=== PATIENT | male | born 1995 | race Caucasian/White ===

== ENCOUNTER 2016-09-21 20:24 | Emergency (ER) | payer SELFPAY ==
[~2016-09-21] VITALS: Ht 180.3 cm; Wt 77.1 kg
--- NOTE | 2016-09-21 20:50 | ED Abdominal Pain ---
General Chief Complaint: Abdominal/GI Problems Stated Complaint: RT SIDED PELVIC PAIN Nursing Triage Note: pt ambulated to room. pt complains of lower right pelvic pain for last 3 days. no other issues or symptoms noted at this time. Sepsis Screen: No Definite Risk Source of Information: Patient Exam Limitations: No Limitations History of Present Illness Time Seen By Provider: 20:44 Initial Comments Patient presents to ER by private conveyance with chief complaint of 3 days progressively and intermittently worsening pain in the right lower abdomen/ pelvis inguinal region. He remarks that when he was much much younger he had a right inguinal hernia repair. He does not recall doing anything that would've injured that hernia. He has no fevers chills nausea vomiting or diarrhea. He had a bowel movement yesterday was formed regular. He is concerned because his family member has recently been diagnosed with pancreatitis secondary to a large gallstone. He has not had any other surgeries on his belly and has his own appendix and gallbladder intact. He has no other medical problems and is not on any medicines. Allergies and Home Medications Allergies Coded Allergies: No Known Drug Allergies (Unverified , 09/21/16) Review of Systems Constitutional: No chills, No diaphoresis, No fever, No malaise Respiratory: Denies Cough Cardiovascular: Denies Chest Pain, Denies Palpitations, Denies Syncope Gastrointestinal: See HPI, Abdominal Pain, Denies Blood Streaked Stools, Denies Constipated, Denies Diarrhea, Denies Nausea, Denies Poor Appetite, Denies Vomiting Genitourinary: Denies Burning, Denies Discharge Musculoskeletal: No back pain, No joint pain Skin: No pruritus, No rash Psychiatric/Neurological: Denies Numbness, Denies Paresthesia Past Pfbdncd-Dhvqqw-Xrdgfo Hx Patient Social History Recent Foreign Travel: No Contact w/Someone Who Travel: No Recent Infectious Disease Expo: No Physical Exam Vital Signs VS - Last 72 Hours, by Label 09/21/16 20:41 Temp 97.2 Pulse 103 Resp 16 B/P (MAP) 144/96 Pulse Ox 99 O2 Delivery Room Air Capillary Refill : Less Than 3 Seconds General Appearance: WD/WN, moderate distress HEENT: PERRL/EOMI, pharynx normal Respiratory: chest non-tender, lungs clear Cardiovascular: normal peripheral pulses, regular rate, rhythm, no edema Peripheral Pulses: 3+ Dorsalis Pedis (R), 3+ Left Dors-Pedis (L) Gastrointestinal: normal bowel sounds, soft, tenderness (right lower quadrant) Genital/Rectal: normal genital exam, tenderness (right inguinal exam with bulging abdominal contents palpable in the right inguinal tract but no evidence of incarceration. Very tender.) Extremities: normal inspection, no pedal edema Back: normal inspection, no CVA tenderness Male: normal genitalia, inguinal tenderness (right), No testicular tenderness Neurologic/Psychiatric: alert, oriented x 3 Skin: normal color, warm/dry Focused Exam Lactic Acid Level Laboratory Tests Test 09/21/16 21:09 Lactic Acid Level 2.52 MMOL/L (0.50-2.00) *H Progress/Results/Core Measures Results/Orders Lab Results Laboratory Tests Test 09/21/16 20:56 09/21/16 21:09 09/21/16 21:40 Range/Units White Blood Count 7.3 4.3-11.0 10^3/uL Red Blood Count 5.76 4.35-5.85 10^6/uL Hemoglobin 17.3 13.3-17.7 G/DL Hematocrit 49 40-54 % Mean Corpuscular Volume 85 80-99 FL Mean Corpuscular Hemoglobin 30 25-34 PG Mean Corpuscular Hemoglobin Concent 35 32-36 G/DL Red Cell Distribution Width 12.6 10.0-14.5 % Platelet Count 260 130-400 10^3/uL Mean Platelet Volume 11.2 H 7.4-10.4 FL Neutrophils (%) (Auto) 60 42-75 % Lymphocytes (%) (Auto) 30 12-44 % Monocytes (%) (Auto) 6 0-12 % Eosinophils (%) (Auto) 3 0-10 % Basophils (%) (Auto) 0 0-10 % Neutrophils # (Auto) 4.4 1.8-7.8 X 10^3 Lymphocytes # (Auto) 2.2 1.0-4.0 X 10^3 Monocytes # (Auto) 0.5 0.0-1.0 X 10^3 Eosinophils # (Auto) 0.2 0.0-0.3 10^3/uL Basophils # (Auto) 0.0 0.0-0.1 10^3/uL Urine Color YELLOW Urine Clarity CLEAR Urine pH 7 5-9 Urine Specific [place] 1.010 L 1.016-1.022 Urine Protein NEGATIVE NEGATIVE Urine Glucose (UA) 4+ H NEGATIVE Urine Ketones NEGATIVE NEGATIVE Urine Nitrite NEGATIVE NEGATIVE Urine Bilirubin NEGATIVE NEGATIVE Urine Urobilinogen NORMAL NORMAL MG/DL Urine Leukocyte Esterase 1+ H NEGATIVE Urine RBC (Auto) NEGATIVE NEGATIVE Urine RBC NONE /HPF Urine WBC 2-5 /HPF Urine Squamous Epithelial Cells 2-5 /HPF Urine Crystals NONE /LPF Urine Bacteria NEGATIVE /HPF Urine Casts NONE /LPF Urine Mucus NEGATIVE /LPF Urine Other LG SPERM H /HPF Urine Culture Indicated NO Sodium Level 135 135-145 MMOL/L Potassium Level 3.5 L 3.6-5.0 MMOL/L Chloride Level 99 98-107 MMOL/L Carbon Dioxide Level 23 21-32 MMOL/L Anion Gap 13 5-14 MMOL/L Blood Urea Nitrogen 11 7-18 MG/DL Creatinine 1.00 0.60-1.30 MG/DL Estimat Glomerular Filtration Rate > 60 BUN/Creatinine Ratio 11 Glucose Level 445 *H 70-105 MG/DL Calcium Level 9.8 8.5-10.1 MG/DL Total Bilirubin 1.5 H 0.1-1.0 MG/DL Aspartate Amino Transf (AST/SGOT) 12 5-34 U/L Alanine Aminotransferase (ALT/SGPT) 20 0-55 U/L Alkaline Phosphatase 106 40-136 U/L Total Protein 7.7 6.4-8.2 GM/DL Albumin 4.5 3.2-4.5 GM/DL Lipase 20 8-78 U/L Lactic Acid Level 2.52 *H 0.50-2.00 MMOL/L Glucometer 371 H 70-110 MG/DL My Orders Orders - JADA YEUNG Ct Abd/Pelv W (Appendicitis) (09/21/16 20:56) Cbc With Automated Diff (09/21/16 20:56) Comprehensive Metabolic Panel (09/21/16 20:56) Lactic Acid Analyzer (09/21/16 20:56) Lipase (09/21/16 20:56) Ua Culture If Indicated (09/21/16 20:56) Fentanyl Injection (Sublimaze Injection (09/21/16 20:56) Saline Lock/Iv-Start (09/21/16 20:56) Ns Iv 1000 Ml (Sodium Chloride 0.9%) (09/21/16 20:56) Ondansetron Injection (Zofran Injectio (09/21/16 21:00) Iohexol Injection (Omnipaque 350 Mg/Ml 1 (09/21/16 21:15) Ns (Ivpb) (Sodium Chloride 0.9% Ivpb Bag (09/21/16 21:15) Fentanyl Injection (Sublimaze Injection (09/21/16 21:30) Ns Iv 500 Ml (Sodium Chloride 0.9%) (09/21/16 21:44) Potassium Cl 10meq/50ml Ivpb (Kcl 10 Meq (09/21/16 21:45) Accucheck Stat ONCE (09/21/16 21:44) Ketorolac Injection (Toradol Injection) (09/21/16 22:15) Medications Given in ED Current Medications Medications Dose Ordered Sig/Moises Route Start Time Stop Time Status Last Admin Dose Admin Fentanyl Citrate 25 mcg ONCE ONCE IVP 09/21/16 21:30 09/21/16 21:31 DC 09/21/16 21:34 25 MCG Iohexol 100 ml ONCE ONCE IV 09/21/16 21:15 09/21/16 21:21 DC 09/21/16 21:18 100 ML Ondansetron HCl 4 mg ONCE ONCE IVP 09/21/16 21:00 09/21/16 21:01 DC 09/21/16 21:09 4 MG Sodium Chloride 100 ml ONCE ONCE IV 09/21/16 21:15 09/21/16 21:21 DC 09/21/16 21:19 80 ML Sodium Chloride 1,000 ml @ 0 mls/hr Q0M ONCE IV 09/21/16 20:56 09/21/16 20:58 DC 09/21/16 21:30 1,000 MLS/HR Vital Signs/I&O Vital Sign - Last 12Hours 09/21/16 20:41 Temp 97.2 Pulse 103 Resp 16 B/P (MAP) 144/96 Pulse Ox 99 O2 Delivery Room Air Blood Pressure Mean: 112 Progress Note #1: Time: 20:54 Progress Note Recurrence of right inguinal hernia versus appendicitis versus other. No mesenteric signs such as rebound tenderness or pain on percussion to the bottom of the feet. Progress Note #2: Time: 22:01 Progress Note Patient has type 1 diabetes with hyperglycemia without ketosis or acidosis. We' ll get him set up with some outpatient meds and let him go to follow-up with [facility] in the morning. His writing little pain may be from a inguinal hernia which she can follow-up with the surgeon on site coordinator Dr. Benitez. Diagnostic Imaging Diagonstic Imaging: CT Plain Films/CT/US/NM/MRI: abdomen (pelvis with) Comments NAME: GIACOMO KAUR [facility] REC#: [id number] PT STATUS: REG ER : 1995 PHYSICIAN: JADA YEUNG MD ADMIT DATE: 09/21/16/ER Draft Date of Exam:09/21/16 CT ABD/PELV W (APPENDICITIS) INDICATION: Right lower quadrant pain, history of hernia repair. CT of the abdomen and pelvis obtained with IV contrast bolus. There is no prior study for comparison. The visualized portions of the lung bases are clear. There were no pleural fluid collections. There is no free intraperitoneal air. The liver and gallbladder are normal in appearance. The spleen, adrenals, and pancreas appear unremarkable. The kidneys bilaterally show no hydronephrosis or mass. There is a fixed renal pelvis on the right side. There is no stone along the course of the ureter on either side. There is no retroperitoneal mass or adenopathy. There is no ascites or abnormal fluid collection. Visualized bowel loops show no sign of obstruction or ileus. The appendix appeared normal. IMPRESSION: No acute abnormality visualized in the abdomen or pelvis. Dictated on workstation # [id number] Dict: 09/21/162135 Trans: 09/21/16 [address] [facility] [id number] Interpreted by: HERBERT VANCE MD Electronically signed by: Reviewed: Reviewed by Me Consults Consults : Consulting Physician: RAVI BALES DO Consults Notes Discussed the case with the lactate and the hyperglycemia and non-acidosis new onset type 1 diabetes. She recommends just starting him on a low-dose glyburide have him follow-up [facility] in the morning. Departure Impression Impression: Primary Impression: Diabetes type I Qualified Codes: E10.9 - Type 1 diabetes mellitus without complications Additional Impressions: Right inguinal pain Hyperglycemia without ketosis Disposition: HOME, SELF-CARE Condition: Stable Departure-Patient Inst. Decision time for Depature: 22:01 Referrals: NO,LOCAL PHYSICIAN (PCP/Family) Primary Care Physician Patient Instructions: Diabetes Type 1, Adult (DC) Add. Discharge Instructions: You have been diagnosed with diabetes type 1. You should follow up with [facility] tomorrow morning by calling them at [phone] to get an appointment. You'll be started on a medicine called glyburide to be taken twice daily. If you take this medicine it is imperative that you eat something. If you 're feeling cool clammy confused or other worrisome symptoms such as nausea, you should return to the ER immediately. Your right lower pelvis pain may be from a recurrence of your hernia and I recommend tomorrow morning you call the local surgeon, Dr. Benitez at his office at [phone] to set up an appointment. If you're having pain I recommend using Tylenol 500 mg every 8 hours by mouth and or ibuprofen 800 mg every 8 hours by mouth. You may also apply heat directly to the site. If this does not control your pain you'll be given a pain medicine to be taken 1 tablet every 6 hours as needed. When you're on this tablet you should not drink alcohol or drive long trips or operate heavy machinery as it may cause confusion. This medicine will also cause constipation so you should take a stool softener every day that you're using the pain medicine. All discharge instructions reviewed with patient and/or family. Voiced understanding. Scripts Glyburide (Glyburide) 1.25 Mg Tablet 1.25 MG PO BID for 30 Days, #60 TAB 0 Refills Prov: JADA YEUNG 09/21/16 Docusate Sodium (Colace) 100 Mg Capsule 100 MG PO BID for 14 Days, #30 CAP 0 Refills Prov: JADA YEUNG 09/21/16 Hydrocodone/Acetaminophen (Hydrocodon -Acetaminophen 5-325) 1 Each Tablet 1 EACH PO Q6H Y for PAIN for 14 Days, #20 TAB 0 Refills Prov: JADA YEUNG 09/21/16 Copy Copies To 1: ESHA FORRESTER TITUS J Sep 21, 2016 20:50
[2016-09-21] MEDS ORDERED: fentaNYL INJECTION 100 MCG/2 ML AMP IVP STA (20:56)
[2016-09-21] MEDS ORDERED: NS IV 1000 ML 1,000 ML IV ONE (20:56)
[2016-09-21] MEDS ORDERED: ONDANSETRON 4 MG/2 ML (SDV) Z0FRAN IVP ONE (21:00)
[2016-09-21 21:10] LABS: BASOPHILS % (AUTO) 0 % (0-10); BILIRUBIN,URINE NEGATIVE (NEGATIVE); EOSINOPHILS # (AUTO) 0.2 10^3/uL (0.0-0.3); EOSINOPHILS % (AUTO) 3 % (0-10); KETONES,URINE NEGATIVE (NEGATIVE); LEUKOCYTE ESTERASE ,URINE 1+ (NEGATIVE); LYMPHOCYTES # (AUTO) 2.2 X 10^3 (1.0-4.0); LYMPHOCYTES % (AUTO) 30 % (12-44); MEAN CORPUSCULAR HEMOGLOBIN 30 PG (25-34); MEAN CORPUSCULAR HGB CONC 35 G/DL (32-36); MEAN CORPUSCULAR VOLUME 85 FL (80-99); MEAN PLATELET VOLUME 11.2 FL (7.4-10.4); MONOCYTES # (AUTO) 0.5 X 10^3 (0.0-1.0); MONOCYTES % (AUTO) 6 % (0-12); NEUTROPHILS # (AUTO) 4.4 X 10^3 (1.8-7.8); NEUTROPHILS % (AUTO) 60 % (42-75); NITRITE,URINE NEGATIVE (NEGATIVE); PH,URINE 7 (5-9); PLATELET COUNT 260 10^3/uL (130-400); PROTEIN,URINE NEGATIVE (NEGATIVE); RED BLOOD COUNT 5.76 10^6/uL (4.35-5.85); RED CELL DISTRIBUTION WIDTH 12.6 % (10.0-14.5); UROBILINOGEN,URINE NORMAL (NORMAL); WHITE BLOOD COUNT 7.3 10^3/uL (4.3-11.0)
[2016-09-21] MEDS ORDERED: IOHEXOL 350 MG/ML 100 ML (OMNIPAQUE 350) VIAL IV ONE (21:15)
[2016-09-21] MEDS ORDERED: NS 100 ML (IVPB) BAG IV ONE (21:15)
[2016-09-21 21:29] LABS: ALANINE AMINOTRANSFERASE 20 U/L (0-55); ALBUMIN 4.5 GM/DL (3.2-4.5); ANION GAP 13 MMOL/L (5-14); ASPARTATE AMINO TRANSFERASE 12 U/L (5-34); BILIRUBIN,TOTAL 1.5 MG/DL (0.1-1.0); BLOOD UREA NITROGEN 11 MG/DL (7-18); BUN/CREATININE RATIO 11; CALCIUM 9.8 MG/DL (8.5-10.1); CARBON DIOXIDE 23 MMOL/L (21-32); CHLORIDE 99 MMOL/L (98-107); GFR ESTIMATED > 60; LIPASE 20 U/L (8-78); POTASSIUM 3.5 MMOL/L (3.6-5.0); SODIUM 135 MMOL/L (135-145); TOTAL PROTEIN 7.7 GM/DL (6.4-8.2)
[2016-09-21] MEDS ORDERED: fentaNYL INJECTION 100 MCG/2 ML AMP IVP ONE ×2 (21:30→23:00)
[2016-09-21 21:31] LABS: GLUCOSE 445 MG/DL (70-105)
[2016-09-21] MEDS ORDERED: NS IV 500 ML 500 ML IV ONE (21:44)
--- NOTE | 2016-09-21 21:44 | Diagnostic Imaging Report ---
INDICATION: Right lower quadrant pain, history of hernia repair. CT of the abdomen and pelvis obtained with IV contrast bolus. There is no prior study for comparison. The visualized portions of the lung bases are clear. There were no pleural fluid collections. There is no free intraperitoneal air. The liver and gallbladder are normal in appearance. The spleen, adrenals, and pancreas appear unremarkable. The kidneys bilaterally show no hydronephrosis or mass. There is a fixed renal pelvis on the right side. There is no stone along the course of the ureter on either side. There is no retroperitoneal mass or adenopathy. There is no ascites or abnormal fluid collection. Visualized bowel loops show no sign of obstruction or ileus. The appendix appeared normal. IMPRESSION: No acute abnormality visualized in the abdomen or pelvis. Dictated by: Dictated on workstation # [id number]
[2016-09-21] MEDS ORDERED: POTASSIUM CL 10MEQ/50ML IVPB 50 ML IV SCH (21:45)
[2016-09-21] MEDS ORDERED: KETOROLAC 15 MG/ML VIAL IVP ONE (22:15)
[2016-09-21] MEDS ORDERED: DOCU-143 PO (22:24)
[2016-09-21] MEDS ORDERED: HYDR-3812 PO (22:24)
[2016-09-21] MEDS ORDERED: GLYB1.253 PO (22:24)
[2016-09-21] MEDS ORDERED: glyBURIDE 2.5 MG (MICRONASE) TAB PO ONE (22:30)
[2016-09-21] MEDS ORDERED: KETOROLAC 30 MG/ML VIAL IVP ONE (22:30)
[2016-09-21] MEDS ORDERED: KCL 20 MEQ TAB (K-DUR) PO ONE (23:00)
[2016-09-21 23:17] VITALS: BP 130/90
== END 2016-09-21 23:17 | disposition home or self-care (01) ==
LOC: ER 20:27
DX: R10.31 Right lower quadrant pain (principal); E10.65 Type 1 diabetes mellitus with hyperglycemia
CPT/HCPCS: 36415; 74177; 80053; 81000; 82962; 83605; 83690; 85025; 96361; 96365; 96375; 96376

== ENCOUNTER 2017-05-27 03:16 | Emergency (ER) | payer SELFPAY ==
[~2017-05-27] VITALS: Ht 185.4 cm; Wt 73.9 kg
[~2017-05-27 03:16] MED LIST: ACHD5005 PO; DOCU-143 PO; GLYB1.253 PO
[2017-05-27] MEDS ORDERED: NS IV 1000 ML 1,000 ML IV ONE ×2 (03:22→04:09)
--- NOTE | 2017-05-27 03:39 | ED General ---
General Chief Complaint: Glucose Problems Stated Complaint: HYPERGLYCEMIA Source of Information: Patient Exam Limitations: No Limitations History of Present Illness Date Seen by Provider: May 27, 2017 Time Seen by Provider: 03:21 Initial Comments PT ARRIVES VIA POV FROM [employer] PT HAD CALLED EMS, THEN REFUSED TRANSPORT--EMS CALLED HERE TO REPORT THAT PT WAS COMING BY POV, PRIOR TO PT'S ARRIVAL. THEY REPORT THERE WERE MULTIPLE EMPTY BOTTLES OF SODA AND EMPTY CANDY WRAPPERS ALL OVER THE ROOM PT WAS DX WITH DIABETES 09/2016, AND STARTED ON GLYBURIDE. PT HAS NOT FOLLOWED UP WITH ANYONE SINCE HE WAS DX. PT STATES HE WAS REFERRED TO A LEAD CASE MANAGER AT [facility] BUT HE NEVER WENT PT DOES NOT ROUTINELY CHECK BLOOD SUGARS, BUT STATES TONIGHT HE STARTED GETTING SHAKEY, SO CHECKED HIS BLOOD SUGAR AND IT WAS 472, WAS 432 FOR EMS. PT STATES HE HAS HAD THIS BEFORE, BUT NEVER LASTED THIS LONG. C/O THIRST AND URINARY FREQUENCY--CANNOT STATE HOW LONG THAT HAS BEEN GOING ON PT STATES HE HAD 2 ORDERS OF [employer] FROM [employer] AND 2 PIECES OF PIZZA TONIGHT, ALONG WITH A DR. 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 HAS BEEN EXERCISING A LITTLE. BUT ESSENTIALLY NON-INTENTIONAL WEIGHT LOSS PCP: [facility] PT IS ALSO A [employer] Allergies and Home Medications Allergies Coded Allergies: No Known Drug Allergies (Unverified , 09/21/16) Home Medications Docusate Sodium 100 Mg Capsule, 100 MG PO BID Prescribed by: JADA YEUNG on 09/21/162223 Glyburide 1.25 Mg Tablet, 1.25 MG PO BID Prescribed by: JADA YEUNG on 09/21/162223 Hydrocodone Bit/Acetaminophen 1 Each Tablet, 1 EACH PO Q6H PRN for PAIN Prescribed by: JADA YEUNG on 09/21/162223 Patient Home Medication List Home Medication List Reviewed: Yes Review of Systems Constitutional: see HPI, weight loss, other (SHAKINESS) EENTM: no symptoms reported Respiratory: no symptoms reported Cardiovascular: no symptoms reported Gastrointestinal: no symptoms reported, No abdominal pain, No loss of appetite , No nausea, No vomiting Genitourinary: see HPI, frequency Musculoskeletal: no symptoms reported Skin: no symptoms reported Psychiatric/Neurological: Other (SHARP PAINS IN FEET AND FEET HYPERSENSITIVE AND PAIN WITH SLIGHT TOUCH) Hematologic/Lymphatic: No Symptoms Reported Immunological/Allergic: no symptoms reported Past Sjlaldu-Eaurol-Gcgwro Hx Patient Social History Alcohol Use: Denies Use Recreational Drug Use: No Smoking Status: Current Everyday Smoker Type Used: Electronic/Vapor 2nd Hand Smoke Exposure: Yes Recent Foreign Travel: No Contact w/Someone Who Travel: No Recent Hopitalizations: No Immunizations Up To Date PED Vaccines UTD: No Seasonal Allergies Seasonal Allergies: No Past Medical History Surgeries: Yes (hernia surgery as a child) Abdominal (RIGHT hernia surgery as a child) Respiratory: No Cardiac: No Neurological: Yes (SUSPECTED PERIPHERAL NEUROPATHY IN FEET--FEET HYPERSENSITIVE AND PAINFUL TO LIGHT TOUCH) Genitourinary: No Gastrointestinal: Yes (hernia surgery as a child) Abdominal Hernia Musculoskeletal: No Endocrine: Yes (DX 09/2016--NON COMPLIANT) Diabetes, Non-Insulin dep HEENT: No Cancer: No Psychosocial: No Integumentary: No Blood Disorders: No Physical Exam Vital Signs Vital Signs - First Documented 05/27/17 03:20 Temp 97.9 Pulse 114 Resp 27 B/P (MAP) 140/102 (115) Pulse Ox 97 O2 Delivery Room Air Capillary Refill : General Appearance: No Apparent Distress, Thin, Other (TREMULOUS) HEENT: PERRL/EOMI, Other (ORAL MUCOSA MOIST) Neck: Normal Inspection Respiratory: Normal Breath Sounds, No Accessory Muscle Use, No Respiratory Distress Cardiovascular: No Edema, No JVD, No Murmur, Normal Peripheral Pulses, Tachycardia (MILD--110'S) Gastrointestinal: Normal Bowel Sounds, No Organomegaly, No Pulsatile Mass, Non Tender, Soft Back: Normal Inspection Extremity: Normal Capillary Refill, Normal Range of Motion, No Calf Tenderness , No Pedal Edema Neurologic/Psychiatric: Alert, Oriented x3, Normal Mood/Affect, federal aid coordinator II-XII Norm as Tested, Other (FEET HYPERSENSITIVE) Skin: Normal Color, Warm/Dry Progress/Results/Core Measures Suspected Sepsis SIRS Temperature: Pulse: Respiratory Rate: Laboratory Tests 05/27/17 03:25: White Blood Count 5.7 Blood Pressure / Mean: Laboratory Tests 05/27/17 03:25: Creatinine 0.94, Platelet Count 299, Total Bilirubin 1.7H Results/Orders Lab Results Laboratory Tests Test 05/27/17 03:25 05/27/17 03:26 4/7/18 04:49 05/27/17 04:55 Range/Units White Blood Count 5.7 4.3-11.0 10^3/uL Red Blood Count 5.71 4.35-5.85 10^6/uL Hemoglobin 17.9 H 13.3-17.7 G/DL Hematocrit 50 40-54 % Mean Corpuscular Volume 87 80-99 FL Mean Corpuscular Hemoglobin 31 25-34 PG Mean Corpuscular Hemoglobin Concent 36 32-36 G/DL Red Cell Distribution Width 12.2 10.0-14.5 % Platelet Count 299 130-400 10^3/uL Mean Platelet Volume 10.9 H 7.4-10.4 FL Neutrophils (%) (Auto) 70 42-75 % Lymphocytes (%) (Auto) 21 12-44 % Monocytes (%) (Auto) 7 0-12 % Eosinophils (%) (Auto) 2 0-10 % Basophils (%) (Auto) 0 0-10 % Neutrophils # (Auto) 4.0 1.8-7.8 X 10^3 Lymphocytes # (Auto) 1.2 1.0-4.0 X 10^3 Monocytes # (Auto) 0.4 0.0-1.0 X 10^3 Eosinophils # (Auto) 0.1 0.0-0.3 10^3/uL Basophils # (Auto) 0.0 0.0-0.1 10^3/uL Sodium Level 136 135-145 MMOL/L Potassium Level 4.3 3.6-5.0 MMOL/L Chloride Level 100 98-107 MMOL/L Carbon Dioxide Level 23 21-32 MMOL/L Anion Gap 13 5-14 MMOL/L Blood Urea Nitrogen 9 7-18 MG/DL Creatinine 0.94 0.60-1.30 MG/DL Estimat Glomerular Filtration Rate > 60 BUN/Creatinine Ratio 10 Glucose Level 545 *H 70-105 MG/DL Calcium Level 10.0 8.5-10.1 MG/DL Magnesium Level 2.1 1.8-2.4 MG/DL Total Bilirubin 1.7 H 0.1-1.0 MG/DL Aspartate Amino Transf (AST/SGOT) 11 5-34 U/L Alanine Aminotransferase (ALT/SGPT) 21 0-55 U/L Alkaline Phosphatase 110 40-136 U/L Total Protein 7.7 6.4-8.2 GM/DL Albumin 4.7 H 3.2-4.5 GM/DL Amylase Level 35 25-125 U/L Lipase 19 8-78 U/L TSH [place] Testing 1.17 0.35-4.94 UIU/ML Serum Alcohol < 10 <10 MG/DL Glucometer 429 *H 323 H 70-110 MG/DL Urine Color YELLOW Urine Clarity CLEAR Urine pH 5 5-[address] [place] 1.010 L 1.016-1.022 Urine Protein NEGATIVE NEGATIVE Urine Glucose (UA) 4+ H NEGATIVE Urine Ketones NEGATIVE NEGATIVE Urine Nitrite NEGATIVE NEGATIVE Urine Bilirubin NEGATIVE NEGATIVE Urine Urobilinogen NORMAL NORMAL MG/DL Urine Leukocyte Esterase 1+ H NEGATIVE Urine RBC (Auto) NEGATIVE NEGATIVE Urine RBC NONE /HPF Urine WBC 0-2 /HPF Urine Squamous Epithelial Cells 5-10 /HPF Urine Crystals NONE /LPF Urine Bacteria TRACE /HPF Urine Casts NONE /LPF Urine Mucus NEGATIVE /LPF Urine Culture Indicated NO My Orders Orders - SAHARA ARMIJO DO Accucheck Stat ONCE (05/27/17 03:22) Saline Lock/Iv-Start (05/27/17 03:22) Monitor-Rhythm Ecg Trace Only (05/27/17 03:22) Alcohol (05/27/17 03:22) Amylase (05/27/17 03:22) Cbc With Automated Diff (05/27/17 03:22) Comprehensive Metabolic Panel (05/27/17 03:22) Drug Screen Stat (Urine) (05/27/17 03:22) Lipase (05/27/17 03:22) Magnesium (05/27/17 03:22) Thyroid Analyzer (05/27/17 03:22) Ua Culture If Indicated (05/27/17 03:22) Saline Lock/Iv-Start (05/27/17 03:22) Ns Iv 1000 Ml (Sodium Chloride 0.9%) (05/27/17 03:22) Insulin (Regular) Human (Humulin R (Per (05/27/17 04:15) Saline Lock/Iv-Start (05/27/17 04:09) Ns Iv 1000 Ml (Sodium Chloride 0.9%) (05/27/17 04:09) Accucheck Stat ONCE (05/27/17 04:41) Medications Given in ED Current Medications Medications Dose Ordered Sig/Moises Route Start Time Stop Time Status Last Admin Dose Admin Insulin Human Regular 30 unit ONCE ONCE IV 05/27/17 04:15 05/27/17 05:08 DC 05/27/17 04:20 30 UNIT Sodium Chloride 1,000 ml @ 0 mls/hr Q0M ONCE IV 05/27/17 03:22 05/27/17 03:23 DC 05/27/17 03:33 0 MLS/HR Sodium Chloride 1,000 ml @ 0 mls/hr Q0M ONCE IV 05/27/17 04:09 05/27/17 04:10 DC 05/27/17 04:20 0 MLS/HR Vital Signs/I&O 05/27/17 03:20 Temp 97.9 Pulse 114 Resp 27 B/P (MAP) 140/102 (115) Pulse Ox 97 O2 Delivery Room Air Capillary Refill : Point of Care Testing Finger Stick Blood Glucose: 429 Blood Glucose Action Taken: DR ARMIJO NOTIFIED Progress Note : Progress Note PT GIVEN IV FLUIDS AND INSULIN--BLOOD GLUCOSE DOWN TO 323 NO DETERIORATION IN PT'S CONDITION DURING ER STAY MULTIPLE FRIENDS IN ER WITH PT, PT TALKING AND LAUGHING THROUGHOUT ENTIRE ER STAY PT STRONGLY ADVISED TO FOLLOW UP WITH [facility] ON MONDAY FOR FURTHER CARE, TO MAKE APPOINTMENT WITH LEAD CASE MANAGER FOR DIABETIC TEACHING, TO CHECK HIS BLOOD GLUCOSE AT LEAST 3 TIMES A DAY AND KEEP DIARY Departure Impression Primary Impression: Uncontrolled diabetes mellitus Additional Impression: Non-compliance Disposition: 01 HOME, SELF-CARE Condition: Improved Departure-Patient Inst. Referrals: [facility] Patient Instructions: Blood Glucose Monitoring, Carbohydrate Counting Diet, Diabetes Diet , Diabetes Type 2 (DC), Diabetic Meal Planning , Low Carbohydrate Diet Add. Discharge Instructions: CHECK YOUR BLOOD GLUCOSE AT LEAST 3 TIMES A DAY, BEFORE EACH MEAL, AND KEEP DIARY. FOLLOW UP WITH [facility] ON MONDAY FOR FURTHER CARE--CALL IN AM TO MAKE APPOINTMENT TAKE YOUR MEDICATIONS AT THE SAME TIME EVERY DAY FOLLOW A DIET AND KEEP DIARY OF EVERY THING YOU EAT AND DRINK All discharge instructions reviewed with patient and/or family. Voiced understanding. SAHARA ARMIJO DO May 27, 2017 03:38
[2017-05-27 03:45] LABS: BASOPHILS % (AUTO) 0 % (0-10); EOSINOPHILS # (AUTO) 0.1 10^3/uL (0.0-0.3); EOSINOPHILS % (AUTO) 2 % (0-10); HEMATOCRIT 50 % (40-54); HEMOGLOBIN 17.9 G/DL (13.3-17.7); LYMPHOCYTES # (AUTO) 1.2 X 10^3 (1.0-4.0); LYMPHOCYTES % (AUTO) 21 % (12-44); MEAN CORPUSCULAR HEMOGLOBIN 31 PG (25-34); MEAN CORPUSCULAR HGB CONC 36 G/DL (32-36); MEAN CORPUSCULAR VOLUME 87 FL (80-99); MEAN PLATELET VOLUME 10.9 FL (7.4-10.4); MONOCYTES # (AUTO) 0.4 X 10^3 (0.0-1.0); MONOCYTES % (AUTO) 7 % (0-12); NEUTROPHILS % (AUTO) 70 % (42-75); RED BLOOD COUNT 5.71 10^6/uL (4.35-5.85); RED CELL DISTRIBUTION WIDTH 12.2 % (10.0-14.5); WHITE BLOOD COUNT 5.7 10^3/uL (4.3-11.0)
[2017-05-27 03:47] LABS: PLATELET COUNT 299 10^3/uL (130-400)
[2017-05-27 03:59] LABS: ALANINE AMINOTRANSFERASE 21 U/L (0-55); ALBUMIN 4.7 GM/DL (3.2-4.5); ALKALINE PHOSPHATASE 110 U/L (40-136); AMYLASE 35 U/L (25-125); BILIRUBIN,TOTAL 1.7 MG/DL (0.1-1.0); BUN/CREATININE RATIO 10; CARBON DIOXIDE 23 MMOL/L (21-32); CHLORIDE 100 MMOL/L (98-107); CREATININE SERUM 0.94 MG/DL (0.60-1.30); GFR ESTIMATED > 60; LIPASE 19 U/L (8-78); MAGNESIUM 2.1 MG/DL (1.8-2.4); POTASSIUM 4.3 MMOL/L (3.6-5.0); SODIUM 136 MMOL/L (135-145); TOTAL PROTEIN 7.7 GM/DL (6.4-8.2)
[2017-05-27 04:05] LABS: GLUCOSE 545 MG/DL (70-105)
[2017-05-27] MEDS ORDERED: inSUlin (REGULAR) HUMAN 1 UNIT/0.01 ML (CHARGE PER UNIT) IV ONE (04:15)
[2017-05-27 04:23] LABS: TSH (THYROID ANALYZER) 1.17 UIU/ML (0.35-4.94)
[2017-05-27 05:01] LABS: BILIRUBIN,URINE NEGATIVE (NEGATIVE); CLARITY,URINE CLEAR; COLOR,URINE YELLOW; GLUCOSE, URINE (UA) 4+ (NEGATIVE); KETONES,URINE NEGATIVE (NEGATIVE); LEUKOCYTE ESTERASE ,URINE 1+ (NEGATIVE); NITRITE,URINE NEGATIVE (NEGATIVE); PH,URINE 5 (5-9); PROTEIN,URINE NEGATIVE (NEGATIVE); UROBILINOGEN,URINE NORMAL (NORMAL)
[2017-05-27 05:14] LABS: BACTERIA,URINE TRACE /HPF; WBC,URINE 0-2 /HPF
[2017-05-27 05:17] LABS: AMPHETAMINE SCREEN, URINE NEGATIVE (NEGATIVE); BARBITURATE SCREEN URINE NEGATIVE (NEGATIVE); BENZODIAZEPINES SCREEN URINE NEGATIVE (NEGATIVE); CANNABINOID SCREEN, URINE NEGATIVE (NEGATIVE); COCAINE SCREEN URINE NEGATIVE (NEGATIVE); METHADONE STAT NEGATIVE (NEGATIVE); METHAMPHETAMINE SCREEN URINE S NEGATIVE (NEGATIVE); OPIATE SCREEN URINE NEGATIVE (NEGATIVE); OXYCODONE STAT NEGATIVE (NEGATIVE); PROPOXYPHENE STAT NEGATIVE (NEGATIVE); TRICYCLIC ANTIDEPRESSANTS SCRE NEGATIVE (NEGATIVE)
[2017-05-27 05:23] VITALS: BP 140/102
== END 2017-05-27 05:23 | disposition home or self-care (01) ==
LOC: EDUNIT# 03:16 → ER 03:18
DX: E11.9 Type 2 diabetes mellitus without complications (principal); F17.210 Nicotine dependence, cigarettes, uncomplicated; Z91.14 Patient's other noncompliance with medication regimen; Z87.19 Personal history of other diseases of the digestive system; Z98.890 Other specified postprocedural states
CPT/HCPCS: 36415; 80053; 80306; 80320; 81000; 82150; 82962; 83690; 83735; 84443; 85025; 93041; 96361; 96374

== ENCOUNTER 2017-06-15 00:30 | Emergency (ER) | payer SELFPAY ==
[~2017-06-15] VITALS: Ht 185.4 cm; Wt 73.9 kg
[2017-06-15] MEDS ORDERED: GABA-488 PO (00:44)
--- NOTE | 2017-06-15 00:56 | ED Lower Extremity ---
General Chief Complaint: Glucose Problems Stated Complaint: NERVE PAIN IN LEGS Nursing Triage Note: BILATERAL LOWER EXT. PAIN. NOT TAKING RX Nursing Sepsis Screen: No Definite Risk Source: patient Exam Limitations: no limitations History of Present Illness Date Seen by Provider: Jun 15, 2017 Time Seen by Provider: 00:42 Initial Comments The patient presents to the ER by private conveyance with his significant other' s and a chief complaint that he has been diagnosed in the past with type 2 diabetes as well as peripheral neuropathy. He was scribed glyburide as well as gabapentin but he says he doesn't take it more than once or twice a week. He does not feel that the gabapentin helps his peripheral neuropathy. He has not taken any yesterday or today. He woke up tonight with severe pain in both of his calves. He says he is very thirsty drinking all the time and urinating frequently throughout the day. He says his sugars tend to run 3-500. He does not routinely check his own blood sugars. He is not sure if he's ever had DKA before. He describes pain as sharp and stabbing starting in his calves and working its way down to his feet. It is painful to walk on his feet. He is not having any skin breakdown, redness or swelling of his feet. He says he has recently stopped drinking alcohol and sugary drinks such as soda. He is mostly drinking sugar-free flavored water. He does not have a primary care provider but follows with Dr. Gambino at [facility]. Allergies and Home Medications Allergies Coded Allergies: No Known Drug Allergies (Unverified , 09/21/16) Home Medications Glyburide 1.25 Mg Tablet, 1.25 MG PO BID Prescribed by: JADA YEUNG on 09/21/16 4054 Patient Home Medication List Home Medication List Reviewed: Yes Constitutional: No chills, No fever, No malaise EENTM: No ear discharge, No ear pain Respiratory: No cough, No short of breath Cardiovascular: No chest pain, No edema Gastrointestinal: No abdominal pain, No constipation, No diarrhea, No nausea Genitourinary: No dysuria; frequency; No hematuria Musculoskeletal: No joint pain, No joint swelling Skin: No pruritus, No rash Psychiatric/Neurological: Denies Headache, Denies Numbness; Paresthesia, Pre- Existing Deficit (bilateral lower extremities paresthesias) Past Vfxuhvq-Snpdth-Rudkwi Hx Patient Social History Alcohol Use: Denies Use Recreational Drug Use: No Type Used: Electronic/Vapor 2nd Hand Smoke Exposure: Yes Recent Foreign Travel: No Contact w/Someone Who Travel: No Recent Infectious Disease Expo: No Recent Hopitalizations: No Immunizations Up To Date PED Vaccines UTD: No Seasonal Allergies Seasonal Allergies: No Past Medical History Surgeries: Yes (hernia surgery as a child) Abdominal Respiratory: No Cardiac: No Neurological: Yes Genitourinary: No Gastrointestinal: Yes (hernia surgery as a child) Abdominal Hernia Musculoskeletal: No Endocrine: Yes (DX 09/2016--NON COMPLIANT) Diabetes, Non-Insulin dep HEENT: No Cancer: No Psychosocial: No Integumentary: No Blood Disorders: No Physical Exam Vital Signs Vital Signs - First Documented 06/15/17 00:45 Temp 97.9 Pulse 91 Resp 18 B/P (MAP) 106/66 (79) Pulse Ox 99 O2 Delivery Room Air Capillary Refill : Less Than 3 Seconds General Appearance: WD/WN, mild distress HEENT: PERRL/EOMI, pharynx normal Neck: non-tender, normal inspection Cardiovascular: normal peripheral pulses, regular rate, rhythm, no edema Respiratory: chest non-tender, lungs clear, normal breath sounds, no respiratory distress, no accessory muscle use Gastrointestinal: normal bowel sounds, non tender, soft Hips: bilateral hip non-tender, bilateral hip normal inspection, bilateral hip normal range of motion, bilateral hip no evidence of injury Legs: bilateral leg normal inspection, bilateral leg normal range of motion, bilateral leg no evidence of injury, bilateral leg soft tissue tenderness Feet: bilateral foot normal inspection, bilateral foot normal range of motion, bilateral foot no evidence of injury, bilateral foot pain, bilateral foot soft tissue tenderness Neurologic/Tendon: normal motor functions, normal tendon functions, responds to pain, no evidence tendon injury, sensory deficit (chronic decreased sensation bilateral lower extremities) Neurologic/Psychiatric: alert, normal mood/affect, oriented x 3 Skin: normal color, warm/dry Progress/Results/Core Measures Lab Results Laboratory Tests Test 06/15/17 00:43 06/15/17 00:55 06/15/17 01:29 Range/Units Glucometer 382 H 70-110 MG/DL White Blood Count 6.7 4.3-11.0 10^3/uL Red Blood Count 5.20 4.35-5.85 10^6/uL Hemoglobin 16.3 13.3-17.7 G/DL Hematocrit 45 40-54 % Mean Corpuscular Volume 87 80-99 FL Mean Corpuscular Hemoglobin 31 25-34 PG Mean Corpuscular Hemoglobin Concent 36 32-36 G/DL Red Cell Distribution Width 12.5 10.0-14.5 % Platelet Count 310 130-400 10^3/uL Mean Platelet Volume 11.0 H 7.4-10.4 FL Neutrophils (%) (Auto) 62 42-75 % Lymphocytes (%) (Auto) 26 12-44 % Monocytes (%) (Auto) 8 0-12 % Eosinophils (%) (Auto) 4 0-10 % Basophils (%) (Auto) 0 0-10 % Neutrophils # (Auto) 4.2 1.8-7.8 X 10^3 Lymphocytes # (Auto) 1.7 1.0-4.0 X 10^3 Monocytes # (Auto) 0.5 0.0-1.0 X 10^3 Eosinophils # (Auto) 0.2 0.0-0.3 10^3/uL Basophils # (Auto) 0.0 0.0-0.1 10^3/uL Sodium Level 138 135-145 MMOL/L Potassium Level 4.3 3.6-5.0 MMOL/L Chloride Level 104 98-107 MMOL/L Carbon Dioxide Level 23 21-32 MMOL/L Anion Gap 11 5-14 MMOL/L Blood Urea Nitrogen 14 7-18 MG/DL Creatinine 0.91 0.60-1.30 MG/DL Estimat Glomerular Filtration Rate > 60 BUN/Creatinine Ratio 15 Glucose Level 392 H 70-105 MG/DL Calcium Level 10.0 8.5-10.1 MG/DL Magnesium Level 2.2 1.8-2.4 MG/DL Total Bilirubin 1.6 H 0.1-1.0 MG/DL Aspartate Amino Transf (AST/SGOT) 12 5-34 U/L Alanine Aminotransferase (ALT/SGPT) 20 0-55 U/L Alkaline Phosphatase 97 40-136 U/L Total Creatine Kinase 52 30-200 U/L C-Reactive Protein High Sensitivity 0.21 0.00-0.50 MG/DL Total Protein 8.0 6.4-8.2 GM/DL Albumin 4.6 H 3.2-4.5 GM/DL Urine Color YELLOW Urine Clarity CLEAR Urine pH 6 5-9 Urine Specific [place] 1.015 L 1.016-1.022 Urine Protein NEGATIVE NEGATIVE Urine Glucose (UA) 4+ H NEGATIVE Urine Ketones NEGATIVE NEGATIVE Urine Nitrite NEGATIVE NEGATIVE Urine Bilirubin NEGATIVE NEGATIVE Urine Urobilinogen NORMAL NORMAL MG/DL Urine Leukocyte Esterase NEGATIVE NEGATIVE Urine RBC (Auto) NEGATIVE NEGATIVE Urine RBC NONE /HPF Urine WBC RARE /HPF Urine Squamous Epithelial Cells 0-2 /HPF Urine Crystals NONE /LPF Urine Bacteria NEGATIVE /HPF Urine Casts NONE /LPF Urine Mucus NEGATIVE /LPF Urine Culture Indicated NO Urine Opiates Screen NEGATIVE NEGATIVE Urine Oxycodone Screen NEGATIVE NEGATIVE Urine Methadone Screen NEGATIVE NEGATIVE Urine Propoxyphene Screen NEGATIVE NEGATIVE Urine Barbiturates Screen NEGATIVE NEGATIVE Ur Tricyclic Antidepressants Screen NEGATIVE NEGATIVE Urine Phencyclidine Screen NEGATIVE NEGATIVE Urine Amphetamines Screen NEGATIVE NEGATIVE Urine Methamphetamines Screen NEGATIVE NEGATIVE Urine Benzodiazepines Screen NEGATIVE NEGATIVE Urine Cocaine Screen NEGATIVE NEGATIVE Urine Cannabinoids Screen NEGATIVE NEGATIVE My Orders Orders - GAMAL,JADA Cotton Accucheck Stat ONCE (06/15/17 00:38) Cbc With Automated Diff (06/15/17 00:48) Comprehensive Metabolic Panel (06/15/17 00:48) Creatine Kinase (06/15/17 00:48) Hs C Reactive Protein (06/15/17 00:48) Drug Screen Stat (Urine) (06/15/17 00:48) Magnesium (06/15/17 00:48) Ua Culture If Indicated (06/15/17 00:48) Saline Lock/Iv-Start (06/15/17 00:48) Ns Iv 1000 Ml (Sodium Chloride 0.9%) (06/15/17 00:48) Ketorolac Injection (Toradol Injection) (06/15/17 01:00) Medications Given in ED Current Medications Medications Dose Ordered Sig/Moises Route Start Time Stop Time Status Last Admin Dose Admin Ketorolac Tromethamine 10 mg ONCE ONCE IVP 06/15/17 01:00 06/15/17 01:01 DC 06/15/17 00:58 10 MG Vital Signs/I&O 06/15/17 06/15/17 00:45 00:58 Temp 97.9 97.9 Pulse 91 Resp 18 B/P (MAP) 106/66 (79) Pulse Ox 99 O2 Delivery Room Air Blood Pressure Mean: 79 Finger Stick Blood Glucose: 382 Blood Glucose Action Taken: ERP NOTIFIED Progress Note #1: Time: 00:56 Progress Note Is associated the pain in his legs with peripheral neuropathy but does not take gabapentin. He is not following up with anyone nor is he taking his blood sugars. Although is not having any nausea, abdominal pain or other evidence of DKA with a sugar of 385 on arrival were going to check some urine ketones. We' ll start with NSAIDs for his pain but there doesn't seem to be any evidence of cellulitis, DVT or other injury to the lower extremities. Thinks it is both legs and the same pain he was feeling before and he has decreased sensation in both feet it's very possible this is peripheral neuropathy and we may give him some gabapentin see if we can improve his pain. Progress Note #2: Time: 02:18 Progress Note Patient's feeling about the same. He is not in DKA. His labs are otherwise unremarkable other than his blood sugar being above 380. He is not taking his medications a long-standing history of being noncompliant. EMS came in on a different transport and informed us that they were called out on him tonight but he refused transport. I discussed at length with him how best to treat his diabetes and that he should at least be taking the glyburide. As the pills but he says he has a lot of hesitancy taking medications because he was on a lot of pills as a child for ADHD and depression etc. I have also encouraged him to follow up with community health who might be able to have some income based pharmacy and other benefits to would be geared towards his situation. The patient says he is not gone out there because they require co-pay. The patient has only one month left of his glyburide so we will send a 30 day supply to the pharmacy for him. I have offered to give him a larger dose of gabapentin that he says he has gabapentin with refill still left over and doesn't want anymore right now. Departure Impression Primary Impression: Diabetes mellitus Qualified Codes: E11.40 - Type 2 diabetes mellitus with diabetic neuropathy, unspecified Additional Impressions: Hyperglycemia Peripheral neuropathy Qualified Codes: G62.9 - Polyneuropathy, unspecified Disposition: 01 HOME, SELF-CARE Condition: Stable Departure-Patient Inst. Decision time for Depature: 02:22 Referrals: NO,LOCAL PHYSICIAN (PCP/Family) Primary Care Physician Patient Instructions: Diabetes Type 2 (DC) Add. Discharge Instructions: Please follow up with [facility] or with [facility] by calling the clinic [phone]. All discharge instructions reviewed with patient and/or family. Voiced understanding. Scripts Glyburide (Glyburide) 1.25 Mg Tablet 1.25 MG PO BID for 30 Days, #60 TAB 0 Refills Prov: JADA YEUNG 06/15/17 JADA YEUNG Jun 15, 2017 00:56
[2017-06-15] MEDS: KETOROLAC 30 MG/ML VIAL IVP ONE (00:58)
[2017-06-15] MEDS: NS IV 1000 ML 1,000 ML IV SCH (00:59)
[2017-06-15 01:20] LABS: BASOPHILS % (AUTO) 0 % (0-10); EOSINOPHILS # (AUTO) 0.2 10^3/uL (0.0-0.3); EOSINOPHILS % (AUTO) 4 % (0-10); HEMATOCRIT 45 % (40-54); HEMOGLOBIN 16.3 G/DL (13.3-17.7); LYMPHOCYTES # (AUTO) 1.7 X 10^3 (1.0-4.0); LYMPHOCYTES % (AUTO) 26 % (12-44); MEAN CORPUSCULAR HEMOGLOBIN 31 PG (25-34); MEAN CORPUSCULAR HGB CONC 36 G/DL (32-36); MEAN CORPUSCULAR VOLUME 87 FL (80-99); MONOCYTES # (AUTO) 0.5 X 10^3 (0.0-1.0); MONOCYTES % (AUTO) 8 % (0-12); NEUTROPHILS # (AUTO) 4.2 X 10^3 (1.8-7.8); NEUTROPHILS % (AUTO) 62 % (42-75); PLATELET COUNT 310 10^3/uL (130-400); RED CELL DISTRIBUTION WIDTH 12.5 % (10.0-14.5); WHITE BLOOD COUNT 6.7 10^3/uL (4.3-11.0)
[2017-06-15 01:35] LABS: BILIRUBIN,URINE NEGATIVE (NEGATIVE); CLARITY,URINE CLEAR; COLOR,URINE YELLOW; GLUCOSE, URINE (UA) 4+ (NEGATIVE); KETONES,URINE NEGATIVE (NEGATIVE); LEUKOCYTE ESTERASE ,URINE NEGATIVE (NEGATIVE); NITRITE,URINE NEGATIVE (NEGATIVE); PH,URINE 6 (5-9); PROTEIN,URINE NEGATIVE (NEGATIVE); UROBILINOGEN,URINE NORMAL (NORMAL)
[2017-06-15 01:42] LABS: BACTERIA,URINE NEGATIVE /HPF; SQUAMOUS EPITHELIAL CELL,UR 0-2 /HPF; WBC,URINE RARE /HPF
[2017-06-15 01:47] LABS: AMPHETAMINE SCREEN, URINE NEGATIVE (NEGATIVE); BARBITURATE SCREEN URINE NEGATIVE (NEGATIVE); BENZODIAZEPINES SCREEN URINE NEGATIVE (NEGATIVE); CANNABINOID SCREEN, URINE NEGATIVE (NEGATIVE); COCAINE SCREEN URINE NEGATIVE (NEGATIVE); METHADONE STAT NEGATIVE (NEGATIVE); METHAMPHETAMINE SCREEN URINE S NEGATIVE (NEGATIVE); OPIATE SCREEN URINE NEGATIVE (NEGATIVE); OXYCODONE STAT NEGATIVE (NEGATIVE); PROPOXYPHENE STAT NEGATIVE (NEGATIVE); TRICYCLIC ANTIDEPRESSANTS SCRE NEGATIVE (NEGATIVE)
[2017-06-15 02:07] LABS: ALANINE AMINOTRANSFERASE 20 U/L (0-55); ALBUMIN 4.6 GM/DL (3.2-4.5); ALKALINE PHOSPHATASE 97 U/L (40-136); BILIRUBIN,TOTAL 1.6 MG/DL (0.1-1.0); BUN/CREATININE RATIO 15; CARBON DIOXIDE 23 MMOL/L (21-32); CHLORIDE 104 MMOL/L (98-107); CREATINE KINASE 52 U/L (30-200); CREATININE SERUM 0.91 MG/DL (0.60-1.30); GFR ESTIMATED > 60; GLUCOSE 392 MG/DL (70-105); MAGNESIUM 2.2 MG/DL (1.8-2.4); POTASSIUM 4.3 MMOL/L (3.6-5.0); SODIUM 138 MMOL/L (135-145)
[2017-06-15] MEDS ORDERED: GLYB1.253 PO (02:23)
[2017-06-15 02:30] VITALS: BP 139/95
== END 2017-06-15 02:27 | disposition home or self-care (01) ==
LOC: EDUNIT# 00:30 → ER 00:33
DX: E11.65 Type 2 diabetes mellitus with hyperglycemia (principal); E11.42 Type 2 diabetes mellitus with diabetic polyneuropathy; G62.9 Polyneuropathy, unspecified; Z77.22 Contact with and (suspected) exposure to environmental tobacco smoke (acute) (chronic); Z87.19 Personal history of other diseases of the digestive system; Z91.14 Patient's other noncompliance with medication regimen; Z79.84 Long term (current) use of oral hypoglycemic drugs
CPT/HCPCS: 36415; 80053; 80306; 81000; 82550; 82962; 83735; 85025; 86141; 96361; 96374